=== PATIENT | female | born 1935 | race Caucasian/White ===

== ENCOUNTER 2018-09-07 04:53 | Observation (INO) | payer MEDICARE, OTHER ==
--- NOTE | 2018-09-07 05:16 | ED ---
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 Patient claims that weakness is still present. She states that tingling sensation has progressively travelled up to her wrist. Sx onset after coming home from a dinner. Pain is denied. She notes that she has a left shoulder rotator cuff injury and has had previous episodes of her left arm "pulsating". Patient reports that she went to her exercise class today, notes that she did "more than usual" today. Patient saw Dr. Nguyen yesterday as well. PMHx of rheumatoid arthritis, patient is on methotrexate and prednisone. No PMHx of HTN, diabetes. On triage, pain is denied. Nothing is noted to aggravate/alleviate Sx. Home medications and allergies are reviewed. - History of Current Complaint Chief Complaint: EDGeneral Stated Complaint: "LEFT HAND WEAKNESS/PINS & NEEDLES" PER PT Time Seen by Provider: 09/07/18 05:07 Hx Obtained From: Patient Onset/Duration: Started hours ago - onset 199909/06/18, Still Present Timing: Constant Current Severity: None - pain denied Neurological Deficit Location: LUE - left hand Pain Intensity: 0 Pain Scale Used: 0-10 Numeric - 0/10 Character: Weak - left hand, Numbness/Tingling - left hand - Allergy/Home Medications Allergies/Adverse Reactions: Allergies Allergy/AdvReac Type Severity Reaction Status Date / Time MS Sulfa Antibiotics Allergy Hives Verified 09/07/18 05:00 [Sulfa Antibiotics] Home Medications: Home Medications Methotrexate TAB* 2.5 mg PO WEEKLY 09/07/18 [History Confirmed 09/07/18] ZyrTEC 10 MG TAB* 10 mg PO DAILY 09/07/18 [History Confirmed 09/07/18] predniSONE [Prednisone 5 MG TAB] 5 mg PO DAILY 09/07/18 [History Confirmed 09/07] PMH/Surg Hx/FS Hx/Imm Hx Endocrine/Hematology History: Denies: Hx Diabetes Cardiovascular History: Denies: Hx Hypertension, Hx Pacemaker/ICD Respiratory History: Reports: Hx Asthma History: Denies: Hx Renal Disease Sensory History: Denies: Hx Hearing Aid Psychiatric History: Denies: Hx Panic Disorder - Cancer History Hx Chemotherapy: No Hx Radiation Therapy: No - Surgical History Surgery Procedure, Year, and Place: RIGHT HIP RELACEMENT [address] DR HERRERA. HYSTERECTOMY 1988 [facility] [place] DR LEVIN Infectious Disease History: No Infectious Disease History: Denies: Traveled Outside the [place] in Last 30 Days - Family History Known Family History: Negative: Hypertension, Diabetes - Social History Alcohol Use: None Substance Use Type: Reports: None Smoking Status (MU): Never Smoked Tobacco Review of Systems Negative: Fever - on vitals, temp is 98.4 F Neurological: Other - POSITIVE - TINGLING OF LEFT HAND Positive: Weakness - left hand All Other Systems Reviewed And Are Negative: Yes Physical Exam - Summary Physical Exam Summary: VITAL SIGNS: Reviewed. GENERAL: Patient is a well-developed and nourished female who is lying comfortable in the stretcher. Patient is not in any acute respiratory distress. HEAD AND FACE: No signs of trauma. No ecchymosis, hematomas or skull depressions. No sinus tenderness. EYES: PERRLA, EOMI x 2, No injected conjunctiva, no nystagmus. EARS: Hearing grossly intact. Ear canals and tympanic membranes are within normal limits. MOUTH: Oropharynx within normal limits. NECK: Supple, trachea is midline, no adenopathy, no JVD, no carotid bruit, no c- spine tenderness, neck with full ROM. CHEST: Symmetric, no tenderness at palpation LUNGS: Clear to auscultation bilaterally. No wheezing or crackles. CVS: Regular rate and rhythm, S1 and S2 present, no murmurs or gallops appreciated. ABDOMEN: Soft, non-tender. No signs of distention. No rebound no guarding, and no masses palpated. Bowel sounds are normal. EXTREMITIES: FROM in all major joints, no edema, no cyanosis or clubbing. NEURO: Alert and oriented x 3. Speech is normal and follows commands. Patient has drift in left arm, total weakness of left hand wrong address clerk. GCS 15, NIH 2. SKIN: Dry and warm Triage Information Reviewed: Yes Vital Signs On Initial Exam: Initial Vitals Temp Pulse Resp BP Pulse Ox 98.4 F 84 18 165/74 98 09/07/18 04:57 09/07/18 04:57 09/07/18 04:57 09/07/18 04:57 09/07/18 04:57 Vital Signs Reviewed: Yes Diagnostics - Vital Signs Vital Signs Temp Pulse Resp BP Pulse Ox 09/07/18 04:57 98.4 F 84 18 165/74 98 - Laboratory Result Diagrams: 09/07/18 05:27 09/07/18 05:27 Lab Statement: Any lab studies that have been ordered have been reviewed, and results considered in the medical decision making process. - Radiology CXR Radiology Interpretation Completed By: ED Physician Summary of Radiographic Findings: CXR - no acute process, pending official report. - CT brain ct CT Interpretation Completed By: Radiologist Summary of CT Findings: IMPRESSION: No acute intracranial abnormality. This report was reviewed by Dr. Lawson. HEAD CTA CT Interpretation Completed By: Radiologist Summary of CT Findings: IMPRESSION: No hemodynamically significant stenosis. THIS REPORT WAS REVIEWED BY DR. LAWSON - EKG 0548 Cardiac Rate: NL - rate of 81 BPM EKG Rhythm: Sinus Rhythm Summary of EKG Findings: EKG showed sinus rhythm with rate of 81 BPM, left axis deviation. NIH Scale - NIH Scale Level of Consciousness: Alert/Keenly Responsive Ask Patient the Month and His/Her Age: Both Correct Ask Pt to Open/Close Eyes and [employer] Solution Architect/Release Non-Paretic Hand: Both Correctly Best Gaze (Only Horizontal Eye Movement): Normal Visual Field Testing: No Visual Loss Facial Paresis-Pt to Smile & Close Eyes or Grimace Symmetry: Normal/Symmetrical Motor Function - Right Arm: No Drift-Holds 10 Seconds Motor Function - Left Arm: Effort Against [place] Motor Function - Right Leg: No Drift-Holds 10 Seconds Motor Function - Left Leg: No Drift-Holds 10 Seconds Limb Ataxia-Must be out of Proportion to Weakness Present: Absent Sensory (Use Pinprick to Test Arms/Legs/Trunk/Face): Normal Best Language (Describe Picture, Name Items): No Aphasia Dysarthria (Read Several Words): Normal Extinction and Inattention: No Abnormality - Severe weakness of left hand wrong address clerk and left wrist Total Score: 2 Course/Dx - Course Course Of Treatment: Patient is a 83 y/o F presenting to ED with complaints of tingling of left hand, weakness of left hand wrong address clerk onsetting 1999 on 09/06/18. Patient claims that weakness is still present. She states that tingling sensation has progressively travelled up to her wrist. Sx onset after coming home from a dinner. Pain is denied. She notes that she has a left shoulder rotator cuff injury and has had previous episodes of her left arm "pulsating". Patient reports that she went to her exercise class today, notes that she did "more than usual" today. Patient saw Dr. Nguyen yesterday as well. PMHx of rheumatoid arthritis, patient is on methotrexate and prednisone. No PMHx of HTN , diabetes. On physical exam, GCS 15, NIH 2. Total weakness of left hand wrong address clerk, left arm drift is noted. 0517 code anders was called; provider in room at 0507, stroke scale initiated at 0514. CXR - no acute process, pending official report. BRAIN CT IMPRESSION: No acute intracranial abnormality. EKG showed sinus rhythm with rate of 81 BPM, left axis deviation. Labs showed MCH 32, absolute monos 0.9, glucose 101, CRP 13.42, trop 0.01. UA was negative. During ED course, patient received fluids, ASA 325 mg PO. CTA HEAD. IMPRESSION: No hemodynamically significant stenosis. 0648 - Patient's case was discussed with Dr. Shaw, Dr. Shaw accepts for admission. - Diagnoses Provider Diagnoses: CVA (cerebral vascular accident) During the Visit The Following Alert/Code Occurred: Code Frances - 0517 code anders was called; provider in room at 0507, stroke scale initiated at 0514. - Physician Notifications Discussed Care Of Patient With: Mariposa Shaw Time Discussed With Above Provider: 06:48 Instructed by Provider To: Other - Results of Brain CT were communicated by radiologist Dr. Bartolo Montes De Oca at 0538. 0648 - Patient's case was discussed with Dr. Shaw, Dr. Shaw accepts for admission. - Critical Care Time Critical Care Time: 30-74 min - 50 minutes Discharge - Sign-Out/Discharge Documenting (check all that apply): Patient Departure - admit Patient Received Moderate/Deep Sedation with Procedure: No - Discharge Plan Condition: Good Disposition: ADMITTED TO [facility] Referrals: Bimal Stephen MD [Primary Care Provider] - - Attestation Statements Document Initiated by Scribe: Yes Documenting Scribe: SHADI BARNETT Provider For Whom Scribe is Documenting (Include Credential): RAVINDRA LAWSON MD [facility] Attestation: SHADI Ko, scribed for RAVINDRA LAWSON MD on 09/07/18 at 0651. Status of Scribe Document: Ready
[2018-09-07] MEDS ORDERED: NS 0.9% 1000 ML** 1,000 ML IV ONE (05:17)
[2018-09-07 05:34] LABS: ABS Basophils 0.1 10^3/ul (0-0.2); ABS Eosinophils 0.3 10^3/ul (0-0.6); ABS Lymphocytes 2.2 10^3/ul (1.0-4.8); ABS Monocytes 0.9 10^3/ul (0-0.8); ABS Neutrophils 5.4 10^3/ul (1.5-7.7); ABS Nucleated RBC 0 10^3/ul; Eosinophil % 3.4 %; Hematocrit 40 % (33-41); Hemoglobin 13.7 g/dL (12.0-16.0); Lymphocyte % 24.5 %; Mean Corpuscular HGB Conc 34 g/dL (31-36); Mean Corpuscular Hemoglobin 32 pg (27-31); Mean Corpuscular Volume 93 fL (80-97); Mean Platelet Volume 7.6 fL (7.4-10.4); Nucleated Red Blood Cells % 0.1; Platelet Count 245 10^3/uL (150-450); Red Blood Count 4.33 10^6 /uL (3.70-4.87); Red Cell Distribution Width 15 % (10.5-15)
[2018-09-07] MEDS ORDERED: Iodixanol* (CONTRAST) 320 MG/ML 100 ML SDV IV ONE (05:39)
[2018-09-07 05:43] LABS: Activated Partial Thrombo Time 29.5 seconds (26.0-36.3); INR 0.89 (0.77-1.02)
[2018-09-07 05:54] LABS: Albumin 4.1 g/dL (3.2-5.2); Albumin/Globulin Ratio 1.6 (1-3); BUN/Creatinine Ratio 15.7 (8-20); C Reactive Protein 13.42 mg/L (<8.01); Calcium 9.4 mg/dL (8.6-10.3); EGFR African American 97.2 (>60); EGFR Non-African American 80.3 (>60); Globulin 2.6 g/dL (2-4); Potassium 3.9 mmol/L (3.5-5.0); Total Bilirubin 0.5 mg/dL (0.2-1.0); Total Protein 6.7 g/dL (6.4-8.9)
[2018-09-07 05:56] LABS: Troponin I 0.01 ng/mL (<0.04)
[2018-09-07 06:18] LABS: Urine Appearance Clear; Urine Bilirubin Negative (Negative); Urine Blood Negative (Negative); Urine Color Straw; Urine Glucose Negative (Negative); Urine Ketones Negative (Negative); Urine Nitrite Negative (Negative); Urine Protein Negative (Negative); Urine Specific Gravity 1.016 (1.010-1.030); Urine Urobilinogen Negative (Negative)
[2018-09-07] MEDS ORDERED: Aspirin TAB* 325 MG PO ONE (06:34)
[2018-09-07] MEDS ORDERED: Aspirin 81 mg CHEW TAB* 81 MG TAB.CHEW ONE (06:48)
--- NOTE | 2018-09-07 10:57 | CONS ---
NEUROLOGY CONSULTATION: DATE OF CONSULT: 09/07/18 LOCATION: She is in the emergency room, to be admitted. REFERRING PHYSICIAN: Dr. Jess Joyce. CHIEF COMPLAINT: Left hand weakness and numbness. HISTORY OF PRESENT ILLNESS: Debbie Cedillo is an 83-year-old right-handed woman who at 9 p.m. last night noticed that her right hand felt numb and also weak. It persisted through the evening and so she presents to the emergency room in the spindle sander hours. There was no numbness of the face or leg nor weakness of the leg. There were no problems with speech. She has had problems with left shoulder pain since last February, but that has not been bothering her lately. Apparently, a Code Rea was called, although there is no neurology report yet in the chart from [facility]. TPA was not administered. According to Dr. 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 NIH score was 2. There is no prior history of transient ischemic attack or stroke. She was bit by a bug and had right hand swelling and pain last summer. She ended up using her left arm to do most of her daily activities. She developed left shoulder problems last February. She has been treated for left rotator cuff problems since including exercise class. PAST MEDICAL HISTORY: Notable for rheumatoid arthritis, treated with methotrexate and prednisone. She follows with Dr. Nguyen. She has had right hip surgery, hysterectomy. Otherwise, she has been in good health. MEDICATIONS: At home, consist of: 1. Methotrexate 2.5 mg per week. 2. Zyrtec 10 mg p.o. q. day. 3. Prednisone 5 mg p.o. q. day. ALLERGIES: She is listed as having a SULFA allergy. REVIEW OF SYSTEMS: Notable for seasonal allergies. No recent injuries. She was awake when symptoms started. She went to exercise class yesterday. She has not noticed any problems with her gait. She has not noticed any facial weakness or difficulty with speech or word finding. She does not have a headache. No recent change in medications. There is no history of hypertension , diabetes, or heart disease. She does not smoke. PHYSICAL EXAM: She is well-nourished and well-hydrated. Temperature 98.4 by temporal scan, blood pressure is running about 150-160/70 to as high as 98, heart rates in the 80s and sinus rhythm on the monitor, respiratory rate is 18, and oxygen saturation is 97% on room air. Lungs are clear bilaterally. Heart is in a regular rate and rhythm with a grade 2/6 systolic murmur at the upper right sternal border. There are no cervical bruits. Oral mucosa is moist and atraumatic. Neck range of motion is normal. On neurological exam, pupils react equally from 3 down to 2 mm. Visual abbott are full to confrontation. There is no ptosis. Facial musculature and facial sensation is intact and symmetric. Palate and tongue are normal, tongue protrudes in the midline and palate rises symmetrically. There is no dysarthria. She is a little hard of hearing. Motor exam reveals normal tone in the limbs in upper and lower extremities. She has normal strength in the right arm and both legs. In the left upper extremity, she has mild left biceps weakness, wrist flexor weakness, finger flexor weakness, all in the grade 4 range. She has mild dorsal interossei weakness in the left hand, also in the grade 4 to 4+ range. Wrist extension is perhaps 4+. She has normal triceps deltoid strength in the left arm. The rest of the motor exam is normal. Fingertaps are a bit slower in the left hand than the right. There is mild sustention tremor in the left hand. Reflexes are intact and symmetric in upper and lower extremities. She is alert and oriented and a good detailed historian. Memory is intact and language is fluent. DIAGNOSTIC STUDIES/LAB DATA: Includes a normal chemistry profile other than a borderline glucose of 101, cholesterol was checked last September and was 229 and LDL was 136. A CBC today is normal as is INR and PTT. Urinalysis is unremarkable. Looking at prior labs, she had a positive rheumatoid factor at 142 back in February of 2018 and a markedly elevated CCP. A CT of the brain without contrast done early this morning was unremarkable. I reviewed the images and I agreed. CT angiogram of the brain earlier this morning was also obtained and was interpreted as no significant stenosis. EKG was interpreted as left axis deviation and consider anterior infarct. She was in sinus rhythm. IMPRESSION AND PLAN: Impression is that of a possible cerebrovascular accident. She needs an MRI scan and to be admitted. She has appropriately been given aspirin 325 mg. Her blood pressure currently is acceptable, but needs to be monitored. I would not add a statin yet. She should have an MRI scan of the brain, an echocardiogram, and be admitted to telemetry. Fasting lipid profile should be obtained tomorrow morning. There is no evidence of a large vessel occlusion and so thrombectomy is not a consideration at this point in time. TPA was not administered after [facility] consultation. I will continue to follow her along with you. [id number]/[facility] #: [id number] СЕРГЕЙ
[2018-09-07] MEDS ORDERED: Zolpidem TAB* 10 MG PO PRN (12:13)
[2018-09-07] MEDS ORDERED: Enoxaparin(*) 40 MG/0.4 ML SYR SUBCUT SCH (13:00)
[2018-09-07 13:51] VITALS: BP 144/68
--- NOTE | 2018-09-07 14:17 | PN ---
NEUROLOGY FOLLOWUP NOTE: DATE OF FOLLOWUP: 09/07/18 HOSPITALIST: Dr. Joyce. LOCATION: She is an inpatient in room 445. INTERVAL HISTORY: Debbie had her MRI of the brain earlier today and I reviewed the images in the report. It is interpreted as a negative MRI of the brain. I reviewed and I agree. 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 She notes this discomfort and is well. She has no shoulder discomfort currently and no numbness in the hand. PHYSICAL EXAM: On exam, she has difficulty with finger flexion strength, which is in the grade 4 range, but she reports pain in her fingers in attempting it. She has a mild wrist extensor weakness in the grade 4+ range. She has normal strength proximally and normal reflexes. She has normal pin discrimination in the hands. IMPRESSION AND PLAN: At this point, it is apparent that Debbie does not have a cerebrovascular disorder. 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 I think at this point she can be discharged to home. I do not think she needs to be on antiplatelet therapy as again I do not think this was a cerebrovascular event, but rather a peripheral musculoskeletal issue. I explained my opinion to Debbie and she also asked me to speak with her healthcare proxy on the phone who is a pediatric radiologist and I did so. I also spoke with Dr. Joyce and explained my opinion. [id number]/[facility] #: [id number] СЕРГЕЙ
--- NOTE | 2018-09-07 14:33 | HP ---
CC: Dr. Bimal Stephen* HISTORY AND PHYSICAL: DATE OF ADMISSION: 09/07/18. PRIMARY CARE PROVIDER: Bimal Stephen. HEALTHCARE PROXY: Arimda Cedillo ([email or web address]), phone number [phone]. CHIEF COMPLAINT: Left hand tingling for 1 day. HISTORY OF PRESENT ILLNESS: Ms. Cedillo is an 83-year-old woman with past medical history of rheumatoid arthritis, on methotrexate and prednisone; left rotator cuff tear, complicated by adhesive capsulitis, who is presenting with tingling in her left hand since last night. She reports that yesterday she did a lot of upper extremity exercises and finally has been able to get her left arm to be raised above the level of her shoulder. As she was in bed that night , she noticed after these exercises that her left hand began tingling. She does report weakness of the hand, but when asked to give further details, she states that she is not sure if she actually does have weakness. She thinks she has just been "babying" her left arm and hand since this rotator cuff tear 4 months ago. She denies neck pain or radicular symptoms. She denies slurred speech. She denies weakness or sensory deficits anywhere else in her body. She denies headache, chest pain, shortness of breath, or lightheadedness. Otherwise , 10-point review of systems is negative. In the ER, a stroke code was called. 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 Tel[facility]roke was not called. Brain CT performed without acute intracranial abnormality, so she was given aspirin 325 mg and 1 L of IV fluid. PAST MEDICAL HISTORY: 1. Rheumatoid arthritis, on methotrexate and prednisone. 2. Osteoarthritis of hands. 3. Left rotator cuff tear, undergoing physical therapy. HOME MEDICATIONS: 1. Methotrexate 2.5 mg weekly. 2. Prednisone 5 mg daily. 3. Zyrtec 10 mg daily. 4. Ambien 10 mg at bedtime as needed for sleep. ALLERGIES: SULFA caused hives at age 13. FAMILY HISTORY: Reviewed and noncontributory. SOCIAL HISTORY: The patient lives alone. 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 She denies current use or history of tobacco or other drugs, but she does drink a couple of glasses of wine per week. PHYSICAL EXAMINATION GENERAL: A well-appearing woman, using her cell phone, in no acute distress. Alert and interactive. VITAL SIGNS: The patient is afebrile, heart rate in the 70s, blood pressure 125 /81, respiratory rate 12, oxygen saturation 96% on room air. HEENT: OP: Clear. Moist mucous membranes. NECK: Supple with no JVD. LUNGS: Clear to auscultation bilaterally. CARDIAC: Regular rate and rhythm. No murmurs, gallops, or rubs. ABDOMEN: Soft, nontender, and nondistended. Normoactive bowel sounds. EXTREMITIES: Warm and well perfused. No edema. NEUROLOGIC: A and O x3. Cranial nerves II through XII intact. Right upper extremity and bilateral lower extremities with 5/5 strength. Left upper extremity with 4/5 strength on left elbow flexion, extension, and 4/5 strength with hand stationary steam engineer. Negative for pronator drift. Sensation intact in all extremities bilaterally. DIAGNOSTIC STUDIES/LAB DATA: Labs reviewed and notable for unremarkable CBC, BMP, and LFTs. C-reactive protein mildly elevated at 13. UA clear. Chest x-ray with hyperinflation without active cardiopulmonary disease. Brain CT without contrast, without acute intracranial abnormality. CTA of the head and neck without hemodynamically significant stenosis. MRI of the brain without contrast is unremarkable. No restricted diffusion to suggest acute infarct. EKG: Normal sinus rhythm, no abnormalities. ASSESSMENT AND PLAN: An 83-year-old woman with a history of rheumatoid arthritis and left rotator cuff tear, is presenting with new left hand weakness and tingling since last night, found without concerning labs or imaging findings. 1. Weakness of the left hand. Differential includes cerebrovascular accident; however, given recent negative imaging studies, this is very unlikely. She could also have a cervical spine radiculopathy, although the patient denies pain or radiation of symptoms. The patient also does report that she thinks she is babying the hand and just not using it to the full extent, possibly now with adhesive capsulitis. Neuro has ordered TTE with the bubble study and she will have a fasting lipid panel tomorrow morning. She will remain on telemetry overnight. Continue aspirin 81 mg daily. 2. Rheumatoid arthritis. The patient follows with Dr. Jaret Nguyen in the clinic. Continue home prednisone 5 mg daily. She is also on methotrexate weekly. 3. Insomnia. Continue home Ambien 10 mg nightly as needed. 4. DVT prophylaxis. Lovenox 40 mg subcu daily. 5. The patient is DNR/DNI. TIME SPENT: Approximately 60 minutes spent on admission of this patient, more than half of which was spent at bedside for interview and exam. [id number]/[facility] #: [id number] СЕРГЕЙ
--- NOTE | 2018-09-07 23:44 | DS ---
CC: Dr. Bimal Stephen * DISCHARGE SUMMARY: DATE OF ADMISSION: 09/07/18 DATE OF DISCHARGE: 09/07/18 PCP: Dr. Bimal Stephen. DISPOSITION: To home. CONDITION: Good. PRIMARY DIAGNOSIS: Adhesive capsulitis. SECONDARY DIAGNOSIS: Rheumatoid arthritis. CONSULTS: Neurology. PERTINENT STUDIES: Brain MRI without contrast, unremarkable. No restricted diffusion to suggest acute infarct. HISTORY OF PRESENT ILLNESS: Ms. Cedillo is an 83-year-old woman with a past medical history of rheumatoid arthritis, recent left rotator cuff tear complicated by adhesive capsulitis, who is presenting with tingling in her hands since last night. She reports doing an intense physical therapy exercise for her shoulder yesterday and then noted at night to have some tingling. When asked about weakness, she is unclear if her hand is actually weaker, if she is just "babying her hand." HOSPITAL COURSE: Oh gaines was called in the emergency room for left hand weakness and Neurology was consulted. She was given aspirin 325. Neurology recommended admission with brain MRI, TTE, and fasting lipids with overnight telemetry monitoring; however, MRI came back normal. Plan was to discharge from the ER, but unable to contact Neurology for clearance for discharge. Finally in the afternoon after admission to the floor, Neurology deemed the patient safe for discharge, given very low likelihood of cerebrovascular event given normal MRI and recommended no further imaging needed. Symptoms and physical exam unchanged from history and physical dictated 1 hour ago. 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 We have made no changes to her medication list. MEDICATIONS: Include: 1. Aspirin 81 mg daily. 2. Methotrexate 2.5 mg weekly. 3. Prednisone 5 mg daily. 4. Ambien 10 mg nightly as needed. 5. Zyrtec 10 mg daily. The patient was given return precautions. She is to resume a healthy diet with a normal level of activity. TIME SPENT: Less than 30 minutes spent on discharge with this patient, most of which was spent with care coordination at bedside for interview and exam. [id number]/[facility] #: [id number] MTDD
[2018-09-08] MEDS ORDERED: predniSONE TAB* 5 MG PO SCH (09:00)
[2018-09-08] MEDS ORDERED: Aspirin 81 mg CHEW TAB* 81 MG TAB.CHEW PO SCH (09:00)
[2018-09-08] MEDS ORDERED: Cetirizine* 10 MG TAB PO SCH (09:00)
== END 2018-09-07 14:22 | disposition home or self-care (01) ==
LOC: ED 04:53 → MEDTELE 12:04
PROVIDERS: ADMIT Internal Medicine; ATTEND Internal Medicine
DX: M75.00 Adhesive capsulitis of unspecified shoulder (principal); M06.9 Rheumatoid arthritis, unspecified; Z79.82 Long term (current) use of aspirin; Z88.2 Allergy status to sulfonamides; R53.1 Weakness
CPT/HCPCS: 36415; 70450; 70496; 70498; 70551; 71045; 80053; 81003; 84484; 85025; 85610; 85730; 86140; 93005; 96360; 96361; 96372; 99284; A9270-GY; G0378; J1650; Q9967